=== PATIENT | male | born 2005 | race African-American/Black ===

== ENCOUNTER 2025-03-08 08:47 | Emergency (ER) | payer BC, OTHER ==
[~2025-03-08] VITALS: Ht 182.9 cm; Wt 80.0 kg
[2025-03-08 08:52] VITALS: TEMP 36.6; O2SAT 98
[2025-03-08] MEDS ORDERED: IBUP-2028 MT (10:23)
[2025-03-08] MEDS ORDERED: LIDO-53 TP (10:23)
[2025-03-08] MEDS ORDERED: METH-653 MT (10:23)
[2025-03-08 10:39] VITALS: BP 108/62; PULSE 67; RESP 16
[2025-03-08] MEDS: KETOROLAC 30MG/ML VIAL IM ONE (10:39)
[2025-03-08] MEDS: METHOCARBAMOL 750MG TABLET PO SCH (10:58)
== END 2025-03-08 11:00 | disposition home or self-care (01) ==
LOC: ER 08:47
DX: S13.4XXA Sprain of ligaments of cervical spine, initial encounter (principal); X58.XXXA Exposure to other specified factors, initial encounter; Y93.89 Activity, other specified; Y92.89 Other specified places as the place of occurrence of the external cause; Y99.8 Other external cause status
CPT/HCPCS: 99283; 72040; 96372; J1885